=== PATIENT | male | born 1975 | race Caucasian/White ===

== ENCOUNTER 2017-05-21 14:14 | Emergency (ER) | payer MEDICAID ==
[~2017-05-21] VITALS: Ht 182.9 cm; Wt 77.1 kg
[2017-05-21] MEDS ORDERED: normal saline 1000ML IV soln IV ONE (14:40)
[2017-05-21 15:05] LABS: URINE AMPHETAMINE SCREEN NEGATIVE (Neg); URINE BARBITUATE SCREEN NEGATIVE (Neg); URINE BENZODIAZEPINES SCREEN NEGATIVE (Neg); URINE CANNABINOID SCREEN POSITIVE (Neg); URINE COCAINE SCREEN NEGATIVE (Neg); URINE METHADONE SCREEN NEGATIVE (Neg); URINE OPIATE SCREEN NEGATIVE (Neg); URINE PHENCYCLIDINE SCREEN NEGATIVE (Neg)
[2017-05-21 15:28] LABS: BASOPHILS % (AUTO) 0.5 % (0-1); EOSINOPHILS # (AUTO) 0.2 X10'3 (0-0.9); EOSINOPHILS % (AUTO) 2.4 % (0-6); HEMATOCRIT 34.6 % (42.0-52.0); LYMPHOCYTES # (AUTO) 1.9 X10'3 (1.1-4.8); LYMPHOCYTES % (AUTO) 23.3 % (21-51); MEAN CORPUSCULAR HEMOGLOBIN 32.1 PG (27.0-31.0); MEAN CORPUSCULAR HGB CONC 34.6 % (33.0-36.5); MEAN CORPUSCULAR VOLUME 92.9 FL (78-98); MEAN PLATELET VOLUME 7.6 FL (7.4-10.4); MONOCYTES # (AUTO) 0.8 X10'3 (0-0.9); MONOCYTES % (AUTO) 9.8 % (2-12); NEUTROPHILS # (AUTO) 5.1 X10'3 (1.8-7.7); PLATELET COUNT 269 X10'3 (140-440); RED BLOOD COUNT 3.73 X10'6 (4.70-6.10); RED CELL DISTRIBUTION WIDTH 15.6 % (11.5-14.5)
[2017-05-21 15:35] LABS: INR 0.9 INR; PROTHROMBIN TIME 9.6 SECONDS (9.0-12.0)
[2017-05-21 15:51] LABS: ALANINE AMINOTRANSFERASE 49 U/L (12-78); ALBUMIN 2.8 G/DL (3.4-5.0); ALBUMIN/GLOBULIN RATIO 0.7 (1.1-1.5); ALKALINE PHOSPHATASE 77 IU/L (46-116); ANION GAP 9 (8-16); ASPARTATE AMINO TRANSFERASE 50 U/L (10-37); BILIRUBIN,TOTAL 0.3 MG/DL (0.1-1.0); BLOOD UREA NITROGEN 21 MG/DL (7-18); BUN/CREATININE RATIO 28.8 (5.4-32.0); CALCIUM 8.5 MG/DL (8.5-10.1); CHLORIDE 102 MMOL/L (99-107); CREATININE 0.73 MG/DL (0.60-1.10); ETHANOL < 0.010 GM/DL (0.0-0.010); GLUCOSE 115 MG/DL (70-104); POTASSIUM 4.1 MMOL/L (3.5-5.1); SODIUM 140 MMOL/L (135-145); TOTAL PROTEIN 6.9 G/DL (6.4-8.2); eGFR > 90 ML/MIN
[2017-05-21] MEDS: sulfamethoxazole/trimethoprim DS (800/160mg) tablet PO SCH ×2 (16:05→19:37)
[2017-05-21] MEDS ORDERED: diphenhydrAMINE 50 mg/ml inj IM ONE (18:45)
[2017-05-21] MEDS ORDERED: LORazepam 2 mg/ml vial IM ONE (18:45)
[2017-05-21] MEDS ORDERED: EMTR1TAB18 (18:48)
[2017-05-21] MEDS ORDERED: DARU1TAB PO (18:49)
[2017-05-21] MEDS ORDERED: CLIN-80 PO (18:50)
[2017-05-21] MEDS ORDERED: CEPH500C2 PO (18:51)
[2017-05-21] MEDS ORDERED: diphenhydrAMINE 50 mg/ml inj IV ONE (19:10)
[2017-05-21] MEDS: haloperidol lactate 5mg/ml inj IM PRN (19:31)
[2017-05-22] MEDS ORDERED: ipratropium/albuterol 3ml nebule NEB ONE (05:20)
[2017-05-22] MEDS ORDERED: ziprasidone IM 20mg inj **IM only IM ONE (06:35)
[2017-05-22] MEDS ORDERED: LORazepam 2 mg/ml vial IM ONE ×2 (06:35→21:25)
[2017-05-22] MEDS ORDERED: diphenhydrAMINE 50 mg/ml inj IM ONE ×2 (06:35→21:25)
[2017-05-22] MEDS: COBICISTAT PO SCH (06:59)
[2017-05-22] MEDS: sulfamethoxazole/trimethoprim DS (800/160mg) tablet PO SCH ×2 (06:59→20:52)
[2017-05-22] MEDS: DARUNAVIR PO SCH (06:59)
[2017-05-22] MEDS: cephalexin 500mg capsule PO SCH ×2 (07:08→20:51)
[2017-05-22] MEDS: clindamycin 150mg capsule PO SCH ×3 (07:08→20:52)
[2017-05-22] MEDS: EMTRICITABINE PO SCH (07:10)
[2017-05-22] MEDS: TENOFOV ALAFENAM PO SCH (07:10)
[2017-05-22] MEDS ORDERED: ziprasidone 20mg capsule PO SCH (14:25)
[2017-05-22] MEDS ORDERED: ziprasidone 20mg capsule PO ONE (14:25)
[2017-05-22] MEDS ORDERED: diphenhydrAMINE 25mg capsule PO ONE (14:25)
[2017-05-22] MEDS ORDERED: LORazepam 1 MG tablet PO ONE (14:25)
[2017-05-22] MEDS: lactobacillus rhamnosus 10,000 MMU CELLS/CAPSULE PO SCH (20:50)
[2017-05-22] MEDS ORDERED: haloperidol lactate 5mg/ml inj IM ONE (21:25)
[2017-05-23] MEDS: clindamycin 150mg capsule PO SCH ×5 (02:00→19:12)
[2017-05-23] MEDS: EMTRICITABINE PO SCH (08:18)
[2017-05-23] MEDS: COBICISTAT PO SCH (08:18)
[2017-05-23] MEDS: TENOFOV ALAFENAM PO SCH (08:18)
[2017-05-23] MEDS: DARUNAVIR PO SCH (08:18)
[2017-05-23] MEDS: lactobacillus rhamnosus 10,000 MMU CELLS/CAPSULE PO SCH ×2 (08:18→19:12)
[2017-05-23] MEDS: cephalexin 500mg capsule PO SCH ×2 (08:19→19:13)
[2017-05-23] MEDS: sulfamethoxazole/trimethoprim DS (800/160mg) tablet PO SCH ×2 (08:19→20:10)
[2017-05-23] MEDS ORDERED: OLANZapine 2.5MG tablet PO SCH (10:14)
[2017-05-23] MEDS: OLANZapine 5mg rapidly disint. tablet PO SCH ×2 (10:33→19:12)
[2017-05-23] MEDS: acetaminophen 325mg tablet PO PRN (17:45)
[2017-05-23] MEDS: albuterol 2.5 MG/3 ML nebule NEB PRN (19:14)
[2017-05-23] MEDS: ziprasidone 20mg capsule PO PRN (20:10)
[2017-05-24] MEDS ORDERED: ziprasidone IM 20mg inj **IM only IM ONE (01:25)
[2017-05-24] MEDS ORDERED: diphenhydrAMINE 50 mg/ml inj IM ONE (01:25)
[2017-05-24] MEDS ORDERED: LORazepam 2 mg/ml vial IM ONE (01:25)
[2017-05-24] MEDS ORDERED: albuterol 2.5 MG/3 ML nebule NEB ONE (01:30)
[2017-05-24] MEDS ORDERED: dexamethasone 4mg tablet PO ONE (01:30)
[2017-05-24] MEDS: clindamycin 150mg capsule PO SCH ×4 (02:00→20:21)
[2017-05-24] MEDS ORDERED: CHLO25CA10 PO (06:55)
[2017-05-24] MEDS: cephalexin 500mg capsule PO SCH ×2 (08:16→20:21)
[2017-05-24] MEDS: lactobacillus rhamnosus 10,000 MMU CELLS/CAPSULE PO SCH ×2 (08:16→20:21)
[2017-05-24] MEDS: OLANZapine 5mg rapidly disint. tablet PO SCH ×2 (08:17→20:21)
[2017-05-24] MEDS: sulfamethoxazole/trimethoprim DS (800/160mg) tablet PO SCH ×2 (08:18→20:21)
[2017-05-24] MEDS: EMTRICITABINE PO SCH (08:25)
[2017-05-24] MEDS: TENOFOV ALAFENAM PO SCH (08:25)
[2017-05-24] MEDS: DARUNAVIR PO SCH (08:26)
[2017-05-24] MEDS: COBICISTAT PO SCH (08:26)
[2017-05-24] MEDS ORDERED: Permethrin 1% 59ml topical rinse TP ONE (12:20)
[2017-05-24] MEDS ORDERED: Permethrin Cream 60gm TP ONE (12:20)
[2017-05-24] MEDS: acetaminophen 325mg tablet PO PRN ×2 (12:52→22:35)
[2017-05-24] MEDS: ziprasidone 20mg capsule PO PRN (16:31)
[2017-05-24] MEDS: albuterol 2.5 MG/3 ML nebule NEB PRN (17:14)
[2017-05-24] MEDS: haloperidol lactate 5mg/ml inj IM PRN (22:04)
[2017-05-24] MEDS ORDERED: diphenhydrAMINE 50 mg/ml inj IM PRN (22:30)
[2017-05-25] MEDS: clindamycin 150mg capsule PO SCH ×4 (03:23→20:47)
[2017-05-25] MEDS: TENOFOV ALAFENAM PO SCH (07:25)
[2017-05-25] MEDS: EMTRICITABINE PO SCH (07:25)
[2017-05-25] MEDS: COBICISTAT PO SCH (07:26)
[2017-05-25] MEDS: sulfamethoxazole/trimethoprim DS (800/160mg) tablet PO SCH ×2 (07:26→20:47)
[2017-05-25] MEDS: cephalexin 500mg capsule PO SCH ×2 (07:26→20:47)
[2017-05-25] MEDS: DARUNAVIR PO SCH (07:26)
[2017-05-25] MEDS: OLANZapine 5mg rapidly disint. tablet PO SCH ×2 (07:26→20:47)
[2017-05-25] MEDS: lactobacillus rhamnosus 10,000 MMU CELLS/CAPSULE PO SCH ×2 (07:26→20:47)
[2017-05-25] MEDS: acetaminophen 325mg tablet PO PRN ×2 (10:35→17:57)
[2017-05-25] MEDS: diphenhydrAMINE 25mg capsule PO PRN (13:38)
[2017-05-25] MEDS: ziprasidone 20mg capsule PO PRN (15:30)
[2017-05-26] MEDS: ziprasidone 20mg capsule PO PRN (01:25)
[2017-05-26] MEDS: clindamycin 150mg capsule PO SCH ×4 (01:25→19:46)
[2017-05-26] MEDS: acetaminophen 325mg tablet PO PRN ×2 (01:25→10:50)
[2017-05-26] MEDS: diphenhydrAMINE 25mg capsule PO PRN ×2 (01:25→09:39)
[2017-05-26] MEDS: albuterol 2.5 MG/3 ML nebule NEB PRN ×3 (02:09→22:16)
[2017-05-26] MEDS ORDERED: ibuprofen tablet 400 MG TABLET PO PRN (06:45)
[2017-05-26] MEDS: TENOFOV ALAFENAM PO SCH (07:29)
[2017-05-26] MEDS: EMTRICITABINE PO SCH (07:29)
[2017-05-26] MEDS: DARUNAVIR PO SCH (07:30)
[2017-05-26] MEDS: sulfamethoxazole/trimethoprim DS (800/160mg) tablet PO SCH ×2 (07:30→19:45)
[2017-05-26] MEDS: COBICISTAT PO SCH (07:30)
[2017-05-26] MEDS: lactobacillus rhamnosus 10,000 MMU CELLS/CAPSULE PO SCH ×2 (07:31→19:45)
[2017-05-26] MEDS: cephalexin 500mg capsule PO SCH ×2 (07:31→19:44)
[2017-05-26] MEDS: OLANZapine 5mg rapidly disint. tablet PO SCH ×2 (07:31→19:46)
[2017-05-26] MEDS: ibuprofen 200mg tablet PO PRN ×3 (07:31→19:45)
[2017-05-26] MEDS ORDERED: LORazepam 1 MG tablet PO ONE (14:00)
[2017-05-27] MEDS: clindamycin 150mg capsule PO SCH ×3 (01:09→15:07)
[2017-05-27] MEDS: ziprasidone 20mg capsule PO PRN (01:09)
[2017-05-27] MEDS: acetaminophen 325mg tablet PO PRN ×2 (01:11→08:00)
[2017-05-27] MEDS: ibuprofen 200mg tablet PO PRN ×2 (04:56→16:54)
[2017-05-27] MEDS: COBICISTAT PO SCH (07:59)
[2017-05-27] MEDS: TENOFOV ALAFENAM PO SCH (07:59)
[2017-05-27] MEDS: DARUNAVIR PO SCH (07:59)
[2017-05-27] MEDS: EMTRICITABINE PO SCH (07:59)
[2017-05-27] MEDS: lactobacillus rhamnosus 10,000 MMU CELLS/CAPSULE PO SCH (08:00)
[2017-05-27] MEDS: cephalexin 500mg capsule PO SCH (08:00)
[2017-05-27] MEDS: sulfamethoxazole/trimethoprim DS (800/160mg) tablet PO SCH (08:00)
[2017-05-27] MEDS: OLANZapine 5mg rapidly disint. tablet PO SCH (08:01)
[2017-05-27] MEDS: diphenhydrAMINE 25mg capsule PO PRN (08:01)
[2017-05-27] MEDS ORDERED: OLANZapine **IM** 10 mg inj. IM PRN (10:00)
[2017-05-27] MEDS ORDERED: OLANZapine 5mg rapidly disint. tablet PO SCH (10:00)
[2017-05-27 16:01] LABS: C DIFF ANTIGEN NEGATIVE (NEGATIVE); C DIFF SPECIMEN=DIARRHEA? ACCEPTABLE; C DIFFICILE TOXINS A&B NEGATIVE (Neg)
[2017-05-27 16:03] LABS: CRYPTOSPORIDIUM AG NEGATIVE (Neg); GIARDIA LAMBLIA AG NEGATIVE (Neg)
[2017-05-27] MEDS ORDERED: loperamide 2mg capsule PO PRN (17:40)
[2017-05-27] MEDS ORDERED: CLIN150C2 PO (19:04)
[2017-05-27] MEDS ORDERED: CEPH-571 PO (19:04)
[2017-05-27 19:10] VITALS: BP 150/84
[2017-05-27] MEDS ORDERED: OLANZapine 2.5MG tablet PO SCH (20:00)
[2017-05-27] MEDS ORDERED: clonazePAM 1mg tablet PO SCH (21:00)
== END 2017-05-27 19:23 | disposition home or self-care (01) ==
LOC: ER 14:14
DX: F20.9 Schizophrenia, unspecified (principal); L03.115 Cellulitis of right lower limb; F41.9 Anxiety disorder, unspecified; Z79.899 Other long term (current) drug therapy; Z56.0 Unemployment, unspecified
CPT/HCPCS: 36415; 71045; 80053; 80305; 80320; 83605; 84443; 85025; 85610; 87040; 87045; 87046; 87324; 87328; 87329; 87336; 87449; 89055; 93005; 94640; 94760; 96361; 96372; 96374; 99285; J1200; J1630; J2060; J3486; J7030; Q0163

== ENCOUNTER 2017-05-29 01:42 | Emergency (ER) | payer MEDICAID ==
[~2017-05-29] VITALS: Ht 182.9 cm; Wt 78.2 kg
[~2017-05-29 01:42] MED LIST: CEPH-571 PO; CEPH500C2 PO; CHLO25CA10 PO; CLIN-80 PO; CLIN150C2 PO; DARU1TAB PO; EMTR1TAB18
[2017-05-29 02:08] VITALS: BP 157/106
[2017-05-29] MEDS ORDERED: LORazepam 1 MG tablet PO ONE (02:35)
[2017-05-29] MEDS ORDERED: ketorolac trometh inj. 60 MG/2 ML VIAL IM ONE (02:35)
== END 2017-05-29 02:49 | disposition home or self-care (01) ==
LOC: ER 01:42
DX: M79.641 Pain in right hand (principal); M79.642 Pain in left hand; F41.9 Anxiety disorder, unspecified; Z79.899 Other long term (current) drug therapy
CPT/HCPCS: 96372; 99283; J1885

== ENCOUNTER 2017-05-30 02:23 | Emergency (ER) | payer MEDICAID ==
[~2017-05-30] VITALS: Ht 182.9 cm; Wt 78.2 kg
[2017-05-30 02:33] VITALS: BP 146/85
== END 2017-05-30 05:34 | disposition home or self-care (01) ==
LOC: ER 02:24
DX: F32.9 Major depressive disorder, single episode, unspecified (principal); F12.10 Cannabis abuse, uncomplicated; Z79.899 Other long term (current) drug therapy
CPT/HCPCS: 99284